=== PATIENT | female | born 1950 | race Caucasian/White ===

== ENCOUNTER → 2021-01-21 14:53 | Outpatient (CLI) | payer MEDICARE, SELFPAY ==
--- NOTE | ~2021-01-21 | XR_ITS ---
XR hip RT min 2V DATE: 01/21/2021 15:10 INDICATION: Right hip pain TECHNIQUE: AP and lateral views COMPARISON: None FINDINGS: There is moderately severe right hip osteoarthritis including prominent acetabular and femo ral head spurring. No fracture or dislocation, avascular necrosis or bone destruction of the right hip is evident. Degenerative changes of the sacroiliac joints. The pubic symphysis is intact. Osteopenia. IMPRESSION: Moderately severe right hip osteoarthritis Osteopenia. Reviewed, dictated and finalized at location A.
== END ==
PROVIDERS: PCP Internal Medicine; Visit Provider Internal Medicine
DX: M16.11 Unilateral primary osteoarthritis, right hip (principal); M85.861 Other specified disorders of bone density and structure, right lower leg
CPT/HCPCS: 73502